=== PATIENT | female | born 1980 | race Caucasian/White ===

== ENCOUNTER 2018-03-03 04:40 | Inpatient (IN) | payer BC ==
[~2018-03-03] VITALS: Ht 167.6 cm; Wt 105.2 kg
[2018-03-03 04:54] VITALS: BP_SYST 127
[2018-03-03] MEDS ORDERED: LR 1,000 ML IV SCH (04:57)
[2018-03-03] MEDS ORDERED: OXYTOCIN/0.9 % SODIUM CHLORIDE 1,000 ML IV SCH ×2 (04:57→12:14)
[2018-03-03] MEDS ORDERED: LR 1,000 ML IV ONE (04:57)
[2018-03-03] MEDS ORDERED: TERBUTALINE SULFATE 1 MG/ML VIAL SUBCUT ONE (05:00)
[2018-03-03] MEDS ORDERED: NALBUPHINE HCL 10 MG/ML AMP IVP PRN (05:00)
[2018-03-03] MEDS ORDERED: AMPICILLIN SODIUM 1 GM in NS 50 ML IV SCH (05:00)
[2018-03-03] MEDS ORDERED: AMPICILLIN SODIUM 2 GM in NS 100 ML IV ONE (05:00)
[2018-03-03 05:39] LABS: HEMATOCRIT 32.9 % (36-48); HEMOGLOBIN 11.4 g/dL (12.0-16.0); MEAN CORPUSCULAR HEMOGLOBIN 30 pg (27-31); MEAN CORPUSCULAR HGB CONC 35 % (32-36); MEAN CORPUSCULAR VOLUME 87 fL (79.0-98.0); PLATELET COUNT (AUTO) 173 K/uL (130-430); RED CELL DISTRIBUTION WIDTH 12.8 % (9.0-15.0)
[2018-03-03] MEDS ORDERED: AMPICILLIN SODIUM 2 GM VIAL ONE (06:04)
[2018-03-03] MEDS ORDERED: ROPIVACAINE 0.2% 100 ML ONE (06:07)
[2018-03-03] MEDS ORDERED: fentaNYL CITRATE/PF 100 MCG/2 ML AMP ONE (06:07)
[2018-03-03 06:09] LABS: BASOPHILS % (MANUAL) 0 % (0-2); EOSINOPHILS % (MANUAL) 0 % (0-7); LYMPHOCYTES % (MANUAL) 16 % (20-46); MONOCYTES % (MANUAL) 2 % (0-11)
[2018-03-03] MEDS ORDERED: LR 500 ML IV ONE (08:03)
[2018-03-03] MEDS ORDERED: FENTANYL 2 MCG/ML EP SCH (08:15)
[2018-03-03] MEDS ORDERED: BUPIVACAINE EP SCH (08:15)
[2018-03-03] MEDS ORDERED: SODIUM CHLORIDE EP SCH (08:15)
[2018-03-03] MEDS ORDERED: OXYTOCIN/0.9 % SODIUM CHLORIDE 1,000 ML IV ONE (12:14)
[2018-03-03] MEDS ORDERED: MEASLES,MUMPS&RUBELLA VACC/PF 12500 UNIT/0.5 ML VIAL SUBQ PRN (12:15)
[2018-03-03] MEDS ORDERED: DERMOPLAST SPRAY TP PRN (12:15)
[2018-03-03] MEDS ORDERED: SENNOSIDES/DOCUSATE SODIUM 1 TAB TABLET(SENOKOT-S) PO PRN (12:15)
[2018-03-03] MEDS ORDERED: ANUSOL 1 EA SUPP.RECT (PREPARATION H) RC PRN (12:15)
[2018-03-03] MEDS ORDERED: WITCH HAZEL LEAF 1 MED.PAD MED.PAD TP PRN (12:15)
[2018-03-03] MEDS ORDERED: DIPH-TET-PERTUS Vaccine 0.5 ML VIAL (ADACEL) I.M. PRN (12:15)
[2018-03-03] MEDS ORDERED: RHO(D) IMMUNE GLOBULIN/MALTOSE 1500 UNITS/1.3 ML (WINHRO) IM PRN (12:15)
[2018-03-03] MEDS ORDERED: METHYLERGONOVINE MALEATE 0.2 MG TABLET PO PRN (12:15)
[2018-03-03] MEDS ORDERED: LANOLIN 7 GM OINT. TP PRN (12:15)
[2018-03-03] MEDS ORDERED: HYDROCORTISONE 0.5%, 28.35 GM TOPICAL CREAM TP PRN (12:15)
[2018-03-03] MEDS ORDERED: OXYCODONE/ACETAMINOPHEN 5-325 TABLET PO PRN ×2 (12:15)
[2018-03-03] MEDS ORDERED: ACETAMINOPHEN 325 MG TABLET PO PRN (12:15)
[2018-03-03] MEDS: IBUPROFEN 600 MG TABLET PO SCH ×2 (17:33→23:47)
[2018-03-03] MEDS ORDERED: TEMAZEPAM 15 MG CAPSULE PO PRN (21:00)
[2018-03-04 06:35] LABS: HEMATOCRIT 30.9 % (36-48); HEMOGLOBIN 10.7 g/dL (12.0-16.0)
[2018-03-04] MEDS: DOCUSATE SODIUM 100 MG CAPSULE PO PRN ×2 (06:58→09:13)
[2018-03-04] MEDS: IBUPROFEN 600 MG TABLET PO SCH ×2 (06:58→09:12)
== END 2018-03-04 14:10 | disposition home or self-care (01) | DRG 775 ==
LOC: SPU 04:40
PROVIDERS: ADMIT Obstetrics & Gynecology; ATTEND Obstetrics & Gynecology
PROC: 10E0XZZ Delivery of Products of Conception, External Approach (ICD-10-PCS; principal; 2018-03-03)
PROC: 0UQGXZZ Repair Vagina, External Approach (ICD-10-PCS; 2018-03-03)
PROC: 3E0R3BZ Introduction of Anesthetic Agent into Spinal Canal, Percutaneous Approach (ICD-10-PCS; 2018-03-03)
PROC: 00HU33Z Insertion of Infusion Device into Spinal Canal, Percutaneous Approach (ICD-10-PCS; 2018-03-03)
DX: O99.824 Streptococcus B carrier state complicating childbirth (principal); O71.4 Obstetric high vaginal laceration alone; Z3A.39 39 weeks gestation of pregnancy; Z37.0 Single live birth
CPT/HCPCS: 36415; 81002-TC; 85007; 85018-TC; 85027; 86592; 86886; 86900; 86901; 94760; J0290; J2590; J2795; J3010

== ENCOUNTER 2021-10-28 17:25 | Emergency (ER) | payer BC, OTHER ==
[~2021-10-28] VITALS: Ht 167.6 cm; Wt 77.6 kg
[2021-10-28 17:31] VITALS: BP_SYST 106
--- NOTE | 2021-10-28 17:34 | NUR ---
Patient to ER bed 7 to gown for evaluation. Side rails up. Report given to foster parent Rhonda.
--- NOTE | 2021-10-28 17:39 | NUR ---
PT STATES SHE HAD BLEEDING AROUND NOON TIME, ONE SMALL GUSH WITH SMALL CLOTS AND SINCE THEN, ONLY USING ONE PAD. STATES SHE FEELS DIZZY AND LIGHTHEADED BUT GOING THROUGH A LOT OF EMOTIONS. DENIES CRAMPING AT THIS TIME.
--- NOTE | 2021-10-28 18:00 | NUR ---
DR LR AT BEDSIDE FOR EVALUATION
--- NOTE | 2021-10-28 18:35 | NUR ---
TAKEN TO RADIOLOGY FOR ULTRASOUND VIA WHEELCHAIR. LABS DRAWN BY BOND RUNNER
[2021-10-28 18:56] LABS: BASOPHILS # (AUTO) 0.1 K/uL (0.0-0.2); BASOPHILS % (AUTO) 0.8 % (0.0-2.0); EOSINOPHILS # (AUTO) 0.1 K/uL (0.0-0.4); EOSINOPHILS % (AUTO) 0.9 % (0.0-4.0); HEMATOCRIT 39.7 % (36-48); HEMOGLOBIN 13.3 g/dL (12.0-16.0); LYMPHOCYTES # (AUTO) 1.6 K/uL (1.0-5.5); LYMPHOCYTES % (AUTO) 20.9 % (20.5-51.5); MEAN CORPUSCULAR HEMOGLOBIN 29 pg (27-31); MEAN CORPUSCULAR HGB CONC 33 % (32-36); MEAN CORPUSCULAR VOLUME 86 fL (79.0-98.0); MONOCYTES # (AUTO) 0.6 K/uL (0.0-1.0); MONOCYTES % (AUTO) 8.4 % (1.7-9.3); NEUTROPHILS # (AUTO) 5.3 K/uL (1.8-7.7); PLATELET COUNT (AUTO) 244 K/uL (130-430); RED BLOOD CELL COUNT(AUTO) 4.64 MIL/uL (4.2-6.2); RED CELL DISTRIBUTION WIDTH 13.6 % (9.0-15.0); WHITE BLOOD COUNT (AUTO) 7.7 K/uL (4.8-10.8)
--- NOTE | 2021-10-28 19:07 | NUR ---
REPORT GIVEN TO BARRY TO ASSUME CARE
[2021-10-28 22:29] VITALS: BP_SYST 116
== END 2021-10-28 22:11 | disposition home or self-care (01) ==
LOC: SED 17:25
DX: O20.0 Threatened abortion (principal); Z3A.01 Less than 8 weeks gestation of pregnancy
CPT/HCPCS: 36415; 76801; 76817; 84702; 85025; 86900; 86901; 99284